=== PATIENT | female | born 1980 | race Caucasian/White ===

== ENCOUNTER → 2023-02-03 10:43 | Outpatient (CLI) | payer OTHER, SELFPAY ==
--- NOTE | ~2023-02-03 | XR_ITS ---
EXAMINATION: XR abdomen/kub 1V INDICATION: Calculus of the kidney TECHNIQUE: Supine views of the abdomen were obtained on 2 radiographs. COMPARISON: None FINDINGS: Bowel contents project over the kidneys limiting sensitivity for renal stones. A moderate v olume of colonic stool is present. No definite urolithiasis is identified. The visualized lung bases are clear. IMPRESSION: 1. No definite urolithiasis identified, sensitivity limited by bowel contents project over the kidney s. Reviewed, dictated and finalized at location L. IMPRESSION: 1. No definite urolithiasis identified, sensitivity limited by bowel contents p roject over the kidneys.
== END ==
PROVIDERS: PCP Urology; Visit Provider Urology
DX: N20.0 Calculus of kidney (principal)
CPT/HCPCS: 74018